=== PATIENT | female | born 1950 | race Caucasian/White ===

== ENCOUNTER 2017-08-13 12:47 | Emergency (ER) | payer OTHER ==
[~2017-08-13] VITALS: Ht 162.6 cm; Wt 61.2 kg
[2017-08-13 14:57] VITALS: BP 116/75
== END 2017-08-13 14:58 | disposition home or self-care (01) ==
LOC: ER 12:47
DX: S01.01XA Laceration without foreign body of scalp, initial encounter (principal); W18.09XA Striking against other object with subsequent fall, initial encounter; Y93.89 Activity, other specified; Y92.89 Other specified places as the place of occurrence of the external cause; Y99.8 Other external cause status

== ENCOUNTER 2017-12-31 11:16 | Inpatient (IN) | payer OTHER ==
[~2017-12-31] VITALS: Ht 162.6 cm; Wt 63.5 kg
[2017-12-31 11:37] VITALS: BP 134/96
[2017-12-31 11:47] LABS: ABSOLUTE NEUTROPHILS 4.9 thou/uL (1.4-8.2); BASOPHILS 0.5 % (0.0-2.0); EOSINOPHILS 0.1 % (0.0-3.0); HEMATOCRIT 38.8 % (37.0-47.0); HEMOGLOBIN 12.9 gm/dL (12.0-15.0); LYMPHOCYTES 18.3 % (24.0-44.0); MCH 28.8 pg (26.0-34.0); MCHC 33.3 g/dL (28.0-37.0); MCV 86.3 fL (80.0-100.0); MONOCYTES 4.9 % (1.0-8.0); PLATELET COUNT 305 thou/uL (150-400); POLYS 76.2 % (36.0-66.0); RBC 4.49 mil/uL (4.20-5.00); WBC 6.5 thou/uL (4.0-11.0)
[2017-12-31 11:54] LABS: CALCIUM 9.8 mg/dL (8.5-10.1); CREATININE 0.7 mg/dL (0.6-1.0); POTASSIUM 4.1 mmol/L (3.5-5.1)
[2017-12-31 12:00] LABS: ALBUMIN 3.9 g/dL (3.4-5.0); TOTAL BILIRUBIN 0.5 mg/dL (<0.1-1.0); TOTAL PROTEIN 7.8 g/dL (6.4-8.2)
[2017-12-31 14:09] LABS: URINE BILIRUBIN NEGATIVE (Negative); URINE BLOOD NEGATIVE (Negative); URINE CLARITY CLEAR; URINE COLOR YELLOW; URINE GLUCOSE-RANDOM* NEGATIVE (Negative); URINE KETONES 1+ (Negative); URINE PROTEIN (DIPSTICK) NEGATIVE (Negative); URINE UROBILINOGEN 0.2 E.U./dl (0.2-1.0)
[2017-12-31 14:10] LABS: URINE LEUKOCYTES-REFLEX TRACE (Negative); URINE NITRITE-REFLEX POSITIVE (Negative)
[2017-12-31 14:21] LABS: SQUAMOUS >10 Many /LPF (0-3)
[2017-12-31 14:22] LABS: BACTERIA-REFLEX >30 Many /HPF (None Seen); CASTS None Seen /LPF (None Seen); CRYSTALS None Seen /LPF (None Seen); URINE RBC None Seen /HPF (0-2)
[2017-12-31 17:07] VITALS: BP 126/74
[2017-12-31 17:28] VITALS: BP 128/72
[2018-01-01 03:39] VITALS: BP 142/67
[2018-01-01] MEDS ORDERED: AMBIEN 5 MG TABL5 M1 PO (04:44)
[2018-01-01 07:40] VITALS: BP 123/78
[2018-01-01 20:00] VITALS: BP 137/73
[2018-01-02 08:30] VITALS: BP 131/72
[2018-01-02 11:18] LABS: HEMATOCRIT 34.5 % (37.0-47.0); HEMOGLOBIN 11.6 gm/dL (12.0-15.0); MCH 29.2 pg (26.0-34.0); MCHC 33.7 g/dL (28.0-37.0); MCV 86.6 fL (80.0-100.0); RBC 3.99 mil/uL (4.20-5.00); RDW 13.7 % (10.5-14.5); WBC 6.8 thou/uL (4.0-11.0)
[2018-01-02 11:32] LABS: CALCIUM 8.7 mg/dL (8.5-10.1); CREATININE 0.6 mg/dL (0.6-1.0); MAGNESIUM 1.8 mg/dL (1.8-2.4); POTASSIUM 3.6 mmol/L (3.5-5.1)
[2018-01-02 19:54] VITALS: BP 139/79
[2018-01-03 08:21] VITALS: BP 151/83
[2018-01-03 08:30] VITALS: BP 151/83
[2018-01-03] MEDS ORDERED: KEFLEX500 M2 PO (10:37)
[2018-01-03 10:58] VITALS: BP 151/83
== END 2018-01-03 11:30 | disposition home or self-care (01) | DRG 690 ==
LOC: ER 11:16 → 4E 14:38 → EROBS 14:38 → 4E 17:28 → SICU 01-01 10:37
PROVIDERS: Emergency Medicine; Internal Medicine
DX: N39.0 Urinary tract infection, site not specified (principal); F03.90 Unspecified dementia, unspecified severity, without behavioral disturbance, psychotic disturbance, mood disturbance, and anxiety; R51 Headache; A08.4 Viral intestinal infection, unspecified; B96.20 Unspecified Escherichia coli [E. coli] as the cause of diseases classified elsewhere; Z88.6 Allergy status to analgesic agent
CPT/HCPCS: 10084; 15000

== ENCOUNTER 2018-12-04 17:55 | Emergency (ER) | payer OTHER ==
[~2018-12-04] VITALS: Ht 162.6 cm; Wt 53.5 kg
[~2018-12-04 17:55] MED LIST: AMBIEN 5 MG TABL5 M1 PO; KEFLEX500 M2 PO
[2018-12-04] MEDS ORDERED: TESSALON PERLE100 MG PO (19:32)
[2018-12-04 20:00] VITALS: BP 136/88
== END 2018-12-04 20:00 | disposition home or self-care (01) ==
LOC: ER 17:55
DX: J06.9 Acute upper respiratory infection, unspecified (principal); F03.90 Unspecified dementia, unspecified severity, without behavioral disturbance, psychotic disturbance, mood disturbance, and anxiety; Z88.5 Allergy status to narcotic agent

== ENCOUNTER 2018-12-12 21:48 | Emergency (ER) | payer OTHER ==
[~2018-12-12] VITALS: Ht 162.6 cm; Wt 52.6 kg
[~2018-12-12 21:48] MED LIST changes: +TESSALON PERLE100 MG PO
[2018-12-12 22:58] LABS: ABSOLUTE NEUTROPHILS 3.5 thou/uL (1.4-8.2); BASOPHILS 0.7 % (0.0-2.0); EOSINOPHILS 1.3 % (0.0-3.0); HEMATOCRIT 40.4 % (37.0-47.0); HEMOGLOBIN 13.5 gm/dL (12.0-15.0); LYMPHOCYTES 36.6 % (24.0-44.0); MCH 28.9 pg (26.0-34.0); MCHC 33.4 g/dL (28.0-37.0); MCV 86.6 fL (80.0-100.0); MONOCYTES 9.1 % (1.0-8.0); PLATELET COUNT 307 thou/uL (150-400); POLYS 52.3 % (36.0-66.0); RBC 4.67 mil/uL (4.20-5.00); RDW 14.4 % (10.5-14.5); WBC 6.6 thou/uL (4.0-11.0)
[2018-12-12 23:03] LABS: ANION GAP 8 mmol/L (7-16); BUN 15 mg/dL (7-18); CALCIUM 9.9 mg/dL (8.5-10.1); CHLORIDE 103 mmol/L (98-107); CO2 28 mmol/L (21-32); CREATININE 0.6 mg/dL (0.6-1.0); GLUCOSE 112 mg/dL (74-106); POTASSIUM 4.1 mmol/L (3.5-5.1); SODIUM 139 mmol/L (136-145)
[2018-12-12 23:12] LABS: TROPONIN-I <0.06 ng/mL (<0.06)
[2018-12-13] MEDS ORDERED: LEVAQUIN 750 M750 MG PO (01:49)
[2018-12-13 02:10] VITALS: BP 114/71
--- NOTE | 2018-12-13 11:55 | EKG ---
[place] [address] [address] [place] [address] ELECTROCARDIOGRAM REPORT Name: LIORCEDRIC Room #: DEP [facility]USDarcy#: [id number] ������������������ Admission: 12/12/18 ������������������ Attend Phys: Discharge: 12/13/18 ������������������ Date of : 50 Report #: [id number] ����������������������������������������������������������������� [id number] THIS REPORT FOR: //name// [facility] ED Test Date: 2018-12-12 Test Time: 22:30:19 Pat Name: CEDRIC TINAJERO Department: Room: Gender: F Crane Follower: tk : 1950 Requested By: Marco Pedersen Order Number: [id number] MD: Nba Conte Measurements Intervals [place] Rate: 101 P: 47 AL: 128 QRS: 13 QRSD: 120 T: 69 QT: 383 QTc: 497 Interpretive Statements Sinus tachycardia Possible septal infarct, age indeterminate) No previous ECG available for comparison Electronically Signed On 12-13-2018 11:54:48 CDT by Nba Conte [email or web address] ��������������������������������������������� <ELECTRONICALLY SIGNED> ���������������������������������������� By: Nba Conte MD, [facility] ��������������������������������������������� 12/13/18 1154 2230 2230 Nba Conte MD, FACC /EPI
--- NOTE | 2018-12-13 11:55 | EKG ---
[place] [address] [address] [place] [address] ELECTROCARDIOGRAM REPORT Name: LIORCEDRIC [facility] [id number] ������������������ Admission: 12/12/18 ������������������ Attend Phys: Discharge: 12/13/18 ������������������ Date of : 50 Report #: [id number] ����������������������������������������������������������������� [id number] THIS REPORT FOR: //name// [facility] [place] [place] ED Test Date: 2018-12-12 Test Time: 23:07:48 Pat Name: CEDRIC TINAJERO Department: Room: Gender: F Chief Informatics Officer: ANÍBAL : 1950 Requested By: Sun George Order Number: [id number] MD: Nba Conte Measurements Intervals [place] Rate: 101 P: 48 SD: 133 QRS: 10 QRSD: 116 T: 62 QT: 387 QTc: 502 Interpretive Statements Sinus tachycardia Possible septal infarct age indeterminate Prolonged QT interval No previous ECG available for comparison Electronically Signed On 12-13-2018 11:55:15 CDT by Nba Conte [email or web address] ��������������������������������������������� <ELECTRONICALLY SIGNED> ���������������������������������������� By: Nba Conte MD, [facility] ��������������������������������������������� 12/13/18 1155 2307 2307 Nba Conte MD, FACC /EPI
== END 2018-12-13 02:10 | disposition home or self-care (01) ==
LOC: ER 21:48
PROVIDERS: Nurse Practitioner Family
DX: J18.1 Lobar pneumonia, unspecified organism (principal); F03.90 Unspecified dementia, unspecified severity, without behavioral disturbance, psychotic disturbance, mood disturbance, and anxiety; Z88.5 Allergy status to narcotic agent